=== PATIENT | female | born 1985 | race Caucasian/White ===

== ENCOUNTER 2018-11-06 15:50 | Emergency (ER) | payer SELFPAY, OTHER ==
[2018-11-06 17:09] LABS: URINE PH (Dip) POC 6.5 (5.0-8.5)
[2018-11-06 17:09] LABS: URINE BLOOD (Dip) POC Negative (NEGATIVE); URINE GLUCOSE (Dip) POC Negative (NEGATIVE); URINE KETONES (Dip) POC 2+ (NEGATIVE); URINE LEUKOCYTE EST (Dip) POC Negative (NEGATIVE); URINE NITRITE (Dip) POC Negative (NEGATIVE); URINE TOTAL PROTEIN POC 2+ (NEGATIVE)
[2018-11-07 14:48] LABS: RAPID PLASMA REAGIN NONREACTIVE (NR)
== END 2018-11-06 17:29 | disposition home or self-care (01) ==
LOC: FTE 17:29
DX: Z00.00 Encounter for general adult medical examination without abnormal findings (principal); R40.2412 Glasgow coma scale score 13-15, at arrival to emergency department; N89.8 Other specified noninflammatory disorders of vagina
CPT/HCPCS: 81003; 81025; 86592; 99283

== ENCOUNTER 2018-11-07 16:33 | Emergency (ER) | payer OTHER | END 2018-11-07 17:34 | disposition home or self-care (01) | LOC: FTE 16:33 | DX: Z09 Encounter for follow-up examination after completed treatment for conditions other than malignant neoplasm (principal) | CPT/HCPCS: 99281; Z7502 ==